=== PATIENT | female | born 2000 | race American Indian/Alaskan Native ===

== ENCOUNTER 2021-03-12 08:18 | Emergency (ER) | payer SELFPAY ==
[2021-03-12 08:24] VITALS: BP 137/87
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
--- NOTE | 2021-03-12 10:51 | XRay Report ---
RIGHT HAND 3 VIEWS INDICATION: right hand/right 5th finger injury. COMPARISON: None. IMPRESSION: No acute osseous or soft tissue abnormality. No significant DJD. Signer Name: Ed Babcock Jr, MD Signed: 03/12/2021 10:47 AM Workstation Name: [id number]
== END 2021-03-12 12:03 | disposition home or self-care (01) ==
LOC: ED 08:18
DX: S63.636A Sprain of interphalangeal joint of right little finger, initial encounter (principal); J45.909 Unspecified asthma, uncomplicated; Y04.8XXA Assault by other bodily force, initial encounter; Y93.89 Activity, other specified; Y92.89 Other specified places as the place of occurrence of the external cause; Y99.8 Other external cause status
CPT/HCPCS: 99283